=== PATIENT | female | born 1945 | race Caucasian/White ===

== ENCOUNTER 2020-10-31 17:34 | Emergency (ER) | payer MEDICARE, OTHER ==
[~2020-10-31 17:34] MED LIST: ALLOPURINOL300 MG PO; COREG12.5 MG PO; FLEXERIL10 MG PO; LIPITOR40 MG PO; MOBIC7.5 MG PO; NEURONTIN300 MG PO; NORCO 5-325 TA1 EACH PO; NORVASC5 MG PO; TOPROL XL 25MG25 MG PO; TRIAMTERENE-HC1 EAC1 PO
[2020-10-31 19:05] LABS: BASOPHIL 0.6 % (0-2); EOSINOPHIL 3.9 % (0-7); HGB 14.2 g/dl (12.5-16.0); LYMPHOCYTE 30.6 % (15-48); MCH 31.6 pg (25.0-31.0); MCHC 33.8 g/dL (32.0-36.0); MCV 93.3 fL (78.0-100.0); MONOCYTE 12.6 % (0-12); MPV 9.7 fL (6.0-9.5); NEUTROPHIL 51.7 % (41-80); NRBC 0; PLT 177 K/uL (150-400); RDW 12.6 % (11.5-14.0); WBC 10.3 K/uL (4.0-10.5)
[2020-10-31 19:21] LABS: ALBUMIN 3.6 g/dL (3.4-5.0); BILIRUBIN - TOTAL 0.5 mg/dL (0.2-1.0); BUN/CREAT RATIO (CALC) 18.9 RATIO; CREATININE 0.9 mg/dL (0.51-0.95); GLOBULIN (CALCULATION) 3.7 g/dL; POTASSIUM 3.5 mmol/L (3.5-5.1); TOTAL PROTEIN 7.3 g/dL (6.4-8.2)
[2020-10-31] MEDS ORDERED: PREDNISONE 10MG10 MG PO (20:06)
[2020-10-31] MEDS ORDERED: VALACYCLOVIR1000 MG PO (20:06)
== END 2020-10-31 20:15 | disposition home or self-care (01) ==
LOC: FER 17:34
PROVIDERS: Emergency Medicine
DX: G51.0 Bell's palsy (principal); I10 Essential (primary) hypertension
CPT/HCPCS: 36415; 70450; 80053; 85025; 93005